=== PATIENT | male | born 1985 | race Caucasian/White ===

== ENCOUNTER 2016-08-21 05:59 | Emergency (ER) | payer OTHER ==
[~2016-08-21] VITALS: Ht 175.3 cm; Wt 80.7 kg
[2016-08-21] MEDS ORDERED: TRAZODONE HCL150 MG PO (07:14)
[2016-08-21] MEDS ORDERED: ZYPREXA10 MG PO (07:16)
== END 2016-08-21 06:45 ==
LOC: ER 05:59
DX: S60.551A Superficial foreign body of right hand, initial encounter (principal); F20.9 Schizophrenia, unspecified; Z23 Encounter for immunization; F31.9 Bipolar disorder, unspecified; Z79.899 Other long term (current) drug therapy; X58.XXXA Exposure to other specified factors, initial encounter